=== PATIENT | male | born 1930 | race Caucasian/White ===

== ENCOUNTER 2018-05-03 07:13 | Day surgery (SDC) | payer MEDICARE, OTHER ==
[2018-05-03] MEDS ORDERED: Lactated Ringers 1,000 ML IV SCH (07:15)
[2018-05-03] MEDS ORDERED: Sodium Chloride 0.9% 10 ML Syringe FLUSH PRN (07:15)
[2018-05-03] MEDS ORDERED: Propofol 200 MG/20 ML SDV IV ONE (09:00)
[2018-05-03] MEDS ORDERED: Midazolam 1 MG/ML 2 ML SDV IV ONE (09:00)
[2018-05-03] MEDS ORDERED: Bupivacaine 0.5% 30 ML SDV INJECT ONE (09:15)
[2018-05-03] MEDS ORDERED: Lidocaine 1% with EPINEPHrine 1:100,000 20 ML MDV INJECT ONE (09:15)
--- NOTE | 2018-05-03 10:18 | PCM.OPNOTE ---
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 5 mm bahai lesion Primary Surgeon: Rafael Suarez Anesthesia Provider: Radha Hester Pathology: 4 mm right nasal lesion 5 mm bahai lesion Complications: None Condition: Good Free Text/Narrative:: see dictation
--- NOTE | 2018-05-03 12:27 | OR ---
DATE OF OPERATION: 05/03/2018 SURGEON: Rafael Suarez MD PROCEDURES PERFORMED: Excisional biopsy of right naris lesion and left temporal lesion. PREOPERATIVE DIAGNOSIS: Basal cell carcinoma. POSTOPERATIVE DIAGNOSIS: Basal cell carcinoma. INDICATIONS FOR PROCEDURE: This is an 87-year-old white male who recently underwent an excision of a lesion around his right naris. Pathology was positive for a basal cell carcinoma. He was recommended to come back for a re- excision. However, he waited until he developed a small ulceration in the area. In addition, he has another area in his left baptist that appears to be consistent with a basal cell carcinoma. He was offered and accepted excision of both of these areas with frozen section of the right naris lesion. INTRAOPERATIVE FINDINGS: The naris lesion measured approximately 4 mm, and the left baptist lesion was approximately 5 mm in diameter. DESCRIPTION OF PROCEDURE: After an excellent IV sedation was administered, the area in the nasal region was prepped and draped in the usual sterile manner. A 1:1 mixture of 1% lidocaine with epinephrine 0.5% bupivacaine was used to infiltrate the area and an elliptical incision was carried out with obvious margins. The superior margin was marked, and the specimen was passed off the field. Bleeding was controlled with [id number] 4-0 Vicryl. On frozen section, the margins were clear. There was a question of the tumor abutting up against the deep inferior margin. On the recommendation of the pathologist, the area was fulgurated with electrocautery. The wound was then closed with interrupted 4-0 Vicryl and then 4-0 Prolene was used to close the skin. Our attention was then turned to the lesion on the baptist. More local was infiltrated for a total of approximately 10 mL. An elliptical incision was carried out with grossly negative margins. The specimen was passed off the field with the superior margin marked. The wound was then closed with interrupted 4-0 Prolene. Dressing was applied. Needle, sponge, and instrument counts were reported as correct. The patient was taken to recovery in a good condition. /[id number] /MODL
[2018-05-03 14:33] VITALS: BP 146/77
--- NOTE | 2018-05-16 15:38 | OR ---
DATE OF OPERATION: 05/03/2018 SURGEON: Rafael Suarez MD ADDENDUM: PROCEDURE PERFORMED: Excisional biopsy of right naris and left temporal lesion. Please note that the narrowest margin on the naris lesion was approximately 2 mm surrounding the 4-mm skin lesion, and the temporal lesion had a margin of 4 mm surrounding the 5-mm lesion. /[id number] ÁNGEL/JEREMIE
== END 2018-05-03 11:33 | disposition home or self-care (01) ==
LOC: FB.SDS 07:13
PROVIDERS: ATTEND Surgery
DX: C44.311 Basal cell carcinoma of skin of nose (principal); C44.319 Basal cell carcinoma of skin of other parts of face; I25.10 Atherosclerotic heart disease of native coronary artery without angina pectoris; I12.9 Hypertensive chronic kidney disease with stage 1 through stage 4 chronic kidney disease, or unspecified chronic kidney disease; N18.2 Chronic kidney disease, stage 2 (mild); E78.5 Hyperlipidemia, unspecified; M17.12 Unilateral primary osteoarthritis, left knee; F17.210 Nicotine dependence, cigarettes, uncomplicated; Z79.899 Other long term (current) drug therapy
CPT/HCPCS: 00164; 11641; 88305; 88331; 88332; J2250; J2704; J3490; J7120

== ENCOUNTER 2018-06-04 09:43 | Emergency (ER) | payer MEDICARE, OTHER ==
--- NOTE | 2018-06-04 09:59 | EDM.PDOC ---
ED HPI GENERAL MEDICAL PROBLEM - General Chief Complaint: Cardiovascular Problem Stated Complaint: CHEST PAIN Time Seen by Provider: 06/04/18 09:54 Source of Information: Reports: Patient History Limitations: Reports: No Limitations - History of Present Illness INITIAL COMMENTS - FREE TEXT/NARRATIVE: Presents with substernal pleuritic chest pain since this morning. Has h/o CABD, porcine aortic valve replacement and pacemaker. Denies SOB, cough or N/V. Had left arm pain last week. Patient took ASA 162mg this morning, was given NTG SL x 1 en route, symptoms have improved. 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, Nitroglycerin Lower Chest Pain Score (Numeric/FACES): 4 - Related Data Allergies Allergy/AdvReac Type Severity Reaction Status Date / Time No Known Allergies Allergy Verified 05/03/18 08:02 Home Meds: Home Meds Allopurinol 200 mg PO DAILY@08 02/12/14 [History] Amiodarone [Cordarone] 200 mg PO DAILY 02/12/14 [History] Carvedilol 12.5 mg PO BIDMEALS 02/12/14 [History] Finasteride [Proscar] 5 mg PO DAILY 02/12/14 [History] Furosemide [Lasix] 80 mg PO BID@,02/12/14 [History] Pravastatin [Pravachol] 10 mg PO DAILY@02/12/14 [History] Aspirin [Low Dose Aspirin EC] 81 mg PO BEDTIME 05/01/14 [History] Acetaminophen with Codeine [Tylenol with Codeine #3 Tablet] 1 tab PO TID PRN 09/01 [History] Doxazosin Mesylate [Cardura] 8 mg PO BEDTIME 06/28/16 [History] Vitamin E 400 unit PO Q48H 06/28/16 [History] Warfarin [Coumadin] 5 mg PO SUTUTHSA 06/28/16 [History] Meclizine [Antivert] 12.5 mg PO DAILY 06/29/16 [History] Docusate Sodium [Colace] 100 mg PO DAILY 08/29/16 [History] Famotidine [Pepcid] 10 mg PO BID PRN 08/29/16 [History] Metolazone [Zaroxolyn] 2.5 mg PO DAILY 08/29/16 [History] Pantoprazole [ProTONIX] 40 mg PO DAILY 08/29/16 [History] Cilostazol [Pletal] 100 mg PO BID 05/02/18 [History] Gabapentin [Neurontin] 300 mg PO BEDTIME 05/02/18 [History] Methocarbamol [Robaxin] 1,000 mg PO TID PRN 05/02/18 [History] Potassium Chloride [Klor-Con M20] 20 meq PO Q4H 05/02/18 [History] Warfarin Sodium [Jantoven] 2.5 - 5 mg PO ASDIRECTED 05/02/18 [History] Acetaminophen with Codeine [Tylenol with Codeine #3 Tablet] 1 each PO Q4HR #8 tablet 05/03/18 [Rx] Past Medical History HEENT History: Reports: Cataract, Impaired Vision, Other (See Below) Other HEENT History: HX CATARACT REMOVAL SURGERY. HX MENIERE'S DISEASE Cardiovascular History: Reports: Afib, Automatic Implantable Cardioverter Defibrillators, Bypass, CAD, Cardiomyopathy, Heart Failure, Heart Valve Replacement, High Cholesterol, Hypertension, Pacemaker, Prior Cardiac Arrest, PVD Other Cardiovascular History: States he has had three heart attacks. Respiratory History: Reports: Pneumonia, Recurrent Gastrointestinal History: Reports: Diverticulosis, GERD, Other (See Below) Other Gastrointestinal History: Past stomach ulcer. Genitourinary History: Reports: Prostate Disorder, Renal Disease, Retention, Urinary Other Genitourinary History: ENLARGED PROSTATE WITH URINARY OBSTRUCTION. ELEVATED PSA, CHRONIC STAGE II KIDNEY DISEASE, URINARY FREQUENCY Musculoskeletal History: Reports: Arthritis, Gout, Osteoarthritis, Other (See Below) Other Musculoskeletal History: States he has arthritis in legs. CHONDROCALCINOSIS Neurological History: Reports: Vertigo Other Neuro History: MENIERE'S SYNDROME Psychiatric History: Reports: None Endocrine/Metabolic History: Reports: None Hematologic History: Reports: Anticoagulation Therapy Immunologic History: Reports: None Oncologic (Cancer) History: Reports: Colon Dermatologic History: Reports: Other (See Below) Other Dermatologic History: SKIN ULCER OF TOE OF RIGHT FOOT - Infectious Disease History Infectious Disease History: Reports: Chicken Pox, Measles, Mumps - Past Surgical History HEENT Surgical History: Reports: Cataract Surgery, Eye Surgery Cardiovascular Surgical History: Reports: Coronary Artery Bypass, Pacer, Valve Replacement Other Cardiovascular Surgeries/Procedures: CARDIOVERSIONS 3-4 IN ADDITIONS TO CARDIAC SURGERIES. PACEMAKER BATTERY REPLACEMENT. GI Surgical History: Reports: Appendectomy, Colon, Colonoscopy Male Surgical History: Reports: TURP-Transurethral Resection of Prostate, Vasectomy Musculoskeletal Surgical History: Reports: Joint Replacement, Knee Replacement Social & Family History - Caffeine Use Caffeine Use: Reports: Coffee - Living Situation & Occupation Living situation: Reports: Occupation: Retired ED ROS GENERAL - Review of Systems Review Of Systems: ROS reveals no pertinent complaints other than HPI. ED EXAM, GENERAL - Physical Exam Exam: See Below Exam Limited By: No Limitations General Appearance: Alert, WD/WN, No Apparent Distress Nose: Normal Inspection Throat/Mouth: No Airway Compromise Head: Atraumatic, Normocephalic Neck: Full Range of Motion Respiratory/Chest: No Respiratory Distress, Lungs Clear, Normal Breath Sounds, Chest Non-Tender Cardiovascular: Regular Rate, Rhythm, No Murmur GI/Abdominal: Normal Bowel Sounds, Soft, No Distention, Tender (epigastric) Extremities: Normal Inspection, Non-Tender, No Pedal Edema Neurological: Alert, Oriented, Normal Cognition, No Motor/Sensory Deficits Psychiatric: Normal Affect, Normal Mood Skin Exam: Warm, Dry, Intact EKG INTERPRETATION EKG Date: 06/04/18 Time: 08:50 Rhythm: Other (paced rhythm) Rate (Beats/Min): 75 Course - Vital Signs Last Recorded V/S: Last Vital Signs Temp 36.5 C 06/04/18 09:43 Pulse 71 06/04/18 12:00 Resp 16 06/04/18 12:30 BP 177/79 H 06/04/18 12:30 Pulse Ox 94 L 06/04/18 12:30 - Orders/Labs/Meds Orders: Active Orders 24 hr Category Date Time Status Abdomen Pelvis wo Cont [CT] Stat Exams 06/04/18 11:10 Taken CXR [Chest 1V Frontal] [CR] Stat Exams 06/04/18 09:51 Taken Labs: Laboratory Tests 06/04/18 06/04/18 06/04/18 Range/Units 10:05 10:05 10:05 WBC 9.8 (4.5-12.0) X10-3/uL RBC 4.81 (4.30-5.75) x10(6)uL Hgb 16.4 H D (11.5-15.5) g/dL Hct 48.5 D (30.0-51.3) % MCV 100.9 H (80-96) fL MCH 34.2 H (27.7-33.6) pg MCHC 33.9 (32.2-35.4) g/dL RDW 14.7 (11.5-15.5) % Plt Count 169 (125-369) X10(3)uL MPV 9.7 (7.4-10.4) fL Neut % (Auto) 74.0 (46-82) % Lymph % (Auto) 14.4 (13-37) % [place]oughton % (Auto) 9.2 (4-12) % Eos % (Auto) 2 (1.0-5.0) % Baso % (Auto) 1 (0-2) % Neut # (Auto) 7.2 (1.6-8.3) # Lymph # (Auto) 1.4 (0.6-5.0) # Houghton # (Auto) 0.9 (0.0-1.3) # Eos # (Auto) 0.2 (0.0-0.8) # Baso # (Auto) 0.1 (0.0-0.2) # PT 20.0 H (8.7-11.1) INR 2.07 H (0.89-1.13) D-Dimer, Quantitative 0.58 (0.0-0.59) mg/LFEU Sodium (135-145) mmol/L Potassium (3.5-5.3) mmol/L Chloride (100-110) mmol/L Carbon Dioxide (21-32) mmol/L BUN (7-18) mg/dL Creatinine (0.70-1.30) mg/dL Est Cr Clr Drug Dosing Estimated GFR (MDRD) (>60) BUN/Creatinine Ratio (9-20) Glucose (80-116) mg/dL Calcium (8.6-10.2) mg/dL Total Bilirubin (0.1-1.3) mg/dL AST (5-25) IU/L ALT (12-36) U/L Alkaline Phosphatase (56-112) IU/L Troponin I (<0.017-0.056) ng/mL Total Protein (6.0-8.0) g/dL Albumin (3.2-4.6) g/dL Globulin g/dL Albumin/Globulin Ratio Amylase (25-115) U/L Urine Color (YELLOW) Urine Appearance (CLEAR) Urine pH (5.0-6.5) Ur Specific Kinde (1.010-1.025) Urine Protein (NEGATIVE) mg/dL Urine Glucose (UA) (NEGATIVE) mg/dL Urine Ketones (NEGATIVE) mg/dL Urine Occult Blood (NEGATIVE) Urine Nitrite (NEGATIVE) Urine Bilirubin (NEGATIVE) Urine Urobilinogen (NEGATIVE) mg/dL Ur Leukocyte Esterase (NEGATIVE) Urine WBC (0) Ur Squamous Epith Cells (NS,R,O) Urine Bacteria (NS) 06/04/18 06/04/18 06/04/18 Range/Units 10:05 10:05 10:52 WBC (4.5-12.0) X10-3/uL RBC (4.30-5.75) x10(6)uL Hgb (11.5-15.5) g/dL Hct (30.0-51.3) % MCV (80-96) fL MCH (27.7-33.6) pg MCHC (32.2-35.4) g/dL RDW (11.5-15.5) % Plt Count (125-369) X10(3)uL MPV (7.4-10.4) fL Neut % (Auto) (46-82) % Lymph % (Auto) (13-37) % Houghton % (Auto) (4-12) % Eos % (Auto) (1.0-5.0) % Baso % (Auto) (0-2) % Neut # (Auto) (1.6-8.3) # Lymph # (Auto) (0.6-5.0) # Houghton # (Auto) (0.0-1.3) # Eos # (Auto) (0.0-0.8) # Baso # (Auto) (0.0-0.2) # PT (8.7-11.1) INR (0.89-1.13) D-Dimer, Quantitative (0.0-0.59) mg/LFEU Sodium 138 (135-145) mmol/L Potassium 3.5 (3.5-5.3) mmol/L Chloride 100 (100-110) mmol/L Carbon Dioxide 35 H (21-32) mmol/L BUN 29 H (7-18) mg/dL Creatinine 1.7 H (0.70-1.30) mg/dL Est Cr Clr Drug Dosing TNP Estimated GFR (MDRD) 38 L (>60) BUN/Creatinine Ratio 17.1 (9-20) Glucose 144 H (80-116) mg/dL Calcium 8.7 (8.6-10.2) mg/dL Total Bilirubin 0.9 (0.1-1.3) mg/dL AST 22 (5-25) IU/L ALT 29 (12-36) U/L Alkaline Phosphatase 60 (56-112) IU/L Troponin I < 0.017 L (<0.017-0.056) ng/mL Total Protein 6.8 (6.0-8.0) g/dL Albumin 3.4 (3.2-4.6) g/dL Globulin 3.4 g/dL Albumin/Globulin Ratio 1.0 Amylase 66 (25-115) U/L Urine Color Yellow (YELLOW) Urine Appearance Clear (CLEAR) Urine pH 7.0 H (5.0-6.5) Ur Specific Kinde 1.010 (1.010-1.025) Urine Protein Negative (NEGATIVE) mg/dL Urine Glucose (UA) Normal (NEGATIVE) mg/dL Urine Ketones Negative (NEGATIVE) mg/dL Urine Occult Blood Negative (NEGATIVE) Urine Nitrite Negative (NEGATIVE) Urine Bilirubin Negative (NEGATIVE) Urine Urobilinogen Normal (NEGATIVE) mg/dL Ur Leukocyte Esterase Negative (NEGATIVE) Urine WBC 0-5 (0) Ur Squamous Epith Cells Rare (NS,R,O) Urine Bacteria Occasional H (NS) 06/04/18 Range/Units 12:30 WBC (4.5-12.0) X10-3/uL RBC (4.30-5.75) x10(6)uL Hgb (11.5-15.5) g/dL Hct (30.0-51.3) % MCV (80-96) fL MCH (27.7-33.6) pg MCHC (32.2-35.4) g/dL RDW (11.5-15.5) % Plt Count (125-369) X10(3)uL MPV (7.4-10.4) fL Neut % (Auto) (46-82) % Lymph % (Auto) (13-37) % Houghton % (Auto) (4-12) % Eos % (Auto) (1.0-5.0) % Baso % (Auto) (0-2) % Neut # (Auto) (1.6-8.3) # Lymph # (Auto) (0.6-5.0) # Houghton # (Auto) (0.0-1.3) # Eos # (Auto) (0.0-0.8) # Baso # (Auto) (0.0-0.2) # PT (8.7-11.1) INR (0.89-1.13) D-Dimer, Quantitative (0.0-0.59) mg/LFEU Sodium (135-145) mmol/L Potassium (3.5-5.3) mmol/L Chloride (100-110) mmol/L Carbon Dioxide (21-32) mmol/L BUN (7-18) mg/dL Creatinine (0.70-1.30) mg/dL Est Cr Clr Drug Dosing Estimated GFR (MDRD) (>60) BUN/Creatinine Ratio (9-20) Glucose (80-116) mg/dL Calcium (8.6-10.2) mg/dL Total Bilirubin (0.1-1.3) mg/dL AST (5-25) IU/L ALT (12-36) U/L Alkaline Phosphatase (56-112) IU/L Troponin I < 0.017 L (<0.017-0.056) ng/mL Total Protein (6.0-8.0) g/dL Albumin (3.2-4.6) g/dL Globulin g/dL Albumin/Globulin Ratio Amylase (25-115) U/L Urine Color (YELLOW) Urine Appearance (CLEAR) Urine pH (5.0-6.5) Ur Specific Kinde (1.010-1.025) Urine Protein (NEGATIVE) mg/dL Urine Glucose (UA) (NEGATIVE) mg/dL Urine Ketones (NEGATIVE) mg/dL Urine Occult Blood (NEGATIVE) Urine Nitrite (NEGATIVE) Urine Bilirubin (NEGATIVE) Urine Urobilinogen (NEGATIVE) mg/dL Ur Leukocyte Esterase (NEGATIVE) Urine WBC (0) Ur Squamous Epith Cells (NS,R,O) Urine Bacteria (NS) Meds: Medications Discontinued Medications Generic Name Dose Route Start Last Admin Trade Name [place] PRN Reason Stop Dose Admin Pantoprazole Sodium 40 mg 06/04/18 10:00 06/04/18 10:10 Protonix Iv IVPUSH 06/04/18 10:01 40 mg ONETIME ONE Administration - Radiology Interpretation Free Text/Narrative:: CXR: NAD CT Abd/Pelvis w/o contrast: NAD - Re-Assessments/Exams Free Text/Narrative Re-Assessment/Exam: 06/04/18 12:13 Symptoms have resolved. 06/04/18 13:05 BP 151/94 Departure - Departure Time of Disposition: 13:04 Disposition: Home, Self-Care 01 Condition: Good Clinical Impression: Chest pain Qualifiers: Chest pain type: unspecified Qualified Code(s): R07.9 - Chest pain, unspecified HTN (hypertension) Qualifiers: Hypertension type: essential hypertension Qualified Code(s): I10 - Essential ( primary) hypertension Instructions: Nonspecific Chest Pain, Woll-sk-Azai, Hypertension, Zkhl-[id number] Referrals: Jai Ruth MD [Primary Care Provider] - Forms: ED Department Discharge Additional Instructions: Continue current medications. Follow up with your primary physician in 2-3 days. Return to the ER if symptoms worsen. - My Orders Last 24 Hours: My Active Orders 06/04/18 09:51 CXR [Chest 1V Frontal] [CR] Stat 06/04/18 11:10 Abdomen Pelvis wo Cont [CT] Stat - Assessment/Plan Last 24 Hours: My Active Orders 06/04/18 09:51 CXR [Chest 1V Frontal] [CR] Stat 06/04/18 11:10 Abdomen Pelvis wo Cont [CT] Stat
[2018-06-04] MEDS ORDERED: Pantoprazole 40 MG Vial IVPUSH ONE (10:00)
[2018-06-04 13:51] VITALS: BP 151/94
--- NOTE | 2018-06-04 13:52 | CT ---
INDICATION: Gassiness. Increased frequency of bowel movements. Chest pain. CT ABDOMEN AND PELVIS WITHOUT CONTRAST: TECHNIQUE: CT scan of abdomen and pelvis was done. Axial images with sagittal and reformatted images. FINDINGS: The lung bases look clear. No effusions. Cardiac silhouette is mildly enlarged. There is some dilatation of the left ventricle and left atrium. No overt CHF. There are pacing or defibrillator leads in the right atrium and right ventricle, as well as a left ventricular pacing lead. As seen on this non-enhanced study, there is either a tiny granuloma or some vascular calcification in the spleen. I see no concerning focal abnormality arising from the liver, spleen, pancreas, gallbladder, or adrenals. Right and left kidneys are atrophic. There is thinning of the cortex. There are bilateral renal cysts at the mid and lower aspects of the kidneys. A couple of these cysts appear to be hyperdense cysts. No definite solid masses. No stones on either kidney. No obstruction of either kidney. There is prominent atherosclerotic change in the abdominal aorta. The prominent atherosclerotic change extends into the celiac axis and its branches, as well as into the SMA. Prominent atherosclerotic change in the renal arteries bilaterally. Prominent atherosclerotic changes in the IWONA. Extensive atherosclerotic change extends into the iliac systems. No aneurysm. The wall of the bladder is somewhat thickened and somewhat irregular. This may be related to previous outflow obstruction or may be related to a disorder in bladder wall contraction. I do not see a definite focal mass or stone arising from the bladder. The patient either has a urachal remnant or a diverticulum that arises from the superior aspect of the bladder. There may be a small calcification within this structure. No definite mass otherwise. The prostate itself looks small. There may have been a previous TURP, however. No free air. No free fluid. No worrisome lymphadenopathy. There is diffuse degenerative change throughout the lumbar spine associated with the end plates and facet joints. There is some generalized spinal canal stenosis throughout the lumbar spine. Additional degenerative changes affect the hip joints and SI joints. I do not see a worrisome lytic or blastic bone lesion. There is some stool throughout the colon. There are diverticula that arise, especially from the rectosigmoid colon. No definite diverticulitis. No large or small bowel obstruction. No definite mass arises from either the large or small bowel. On the reformatted images, there are some chronic appearing compression deformities in the lower thoracic and upper lumbar region. IMPRESSION: No definite acute abnormality is shown. There is some stool throughout the colon. No large or small bowel obstruction. 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 No diverticulitis. Atrophic appearing kidneys. There are bilateral renal cysts that are identified , several of which are hyperdense cysts. No definite solid masses or obstruction. Extensive underlying atherosclerotic changes, as outlined above. Chronic appearing compression deformities in the thoracic and lumbar spine. Diffuse degenerative changes throughout the visualized lumbar spine and pelvis. The patient has almost certain central spinal canal stenosis in the mid and lower lumbar spine, especially at the L4-5 level. There may be a patent urachus arising from the superior aspect of the bladder. Otherwise, the patient has an underlying diverticulum. I do not see a concerning mass within the bladder otherwise. Extensive previous cardia interventions. No definite CHF. MTDD
--- NOTE | 2018-06-04 14:39 | CR ---
INDICATION: Chest pain. CHEST, AP PORTABLE IMAGES: FINDINGS: There is an earlier x-ray from 06/27/2016. As before, there has been a previous midline sternotomy. There is a left subclavian transvenous pacer with defibrillator leads. The cardiac silhouette is enlarged. There is dilatation of the left ventricle in particular. No definite CHF. The lungs look clear of acute infiltrate or effusion. IMPRESSION: No acute abnormality in the chest. Specifically, no CHF or pneumonia. MTDD
== END 2018-06-04 13:20 | disposition home or self-care (01) ==
LOC: FB.ED 09:43
DX: R07.2 Precordial pain (principal); I11.0 Hypertensive heart disease with heart failure; I50.9 Heart failure, unspecified; I48.91 Unspecified atrial fibrillation; E78.00 Pure hypercholesterolemia, unspecified; I25.810 Atherosclerosis of coronary artery bypass graft(s) without angina pectoris; Z95.1 Presence of aortocoronary bypass graft; Z79.899 Other long term (current) drug therapy; Z79.82 Long term (current) use of aspirin; Z79.01 Long term (current) use of anticoagulants
CPT/HCPCS: 36415; 71045; 74176; 80053; 81001; 82150; 84484; 85025; 85379; 85610; 96374; 99285; C9113

== ENCOUNTER 2018-06-07 04:41 | Emergency (ER) | payer MEDICARE, OTHER ==
[2018-06-07] MEDS ORDERED: Sodium Chloride 0.9% 10 ML Syringe FLUSH PRN (05:10)
--- NOTE | 2018-06-07 05:17 | EDM.PDOC ---
ED HPI GENERAL MEDICAL PROBLEM - General Chief Complaint: Gastrointestinal Problem Stated Complaint: BLEEDING Time Seen by Provider: 06/07/18 05:12 Source of Information: Reports: Patient, Family History Limitations: Reports: No Limitations - History of Present Illness INITIAL COMMENTS - FREE TEXT/NARRATIVE: Presents with 3 episodes of rectal bleeding since 12 midnight, described as dark red blood mixed with stool. Diagnosed with diverticulitis by Dr. Ruth yesterday, prescribed antibiotics, has not yet started. 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 Onset: Today Onset Date: 06/07/18 Onset Time: 00:00 Duration: Hour(s): (5) Severity: Moderate - Related Data Allergies Allergy/AdvReac Type Severity Reaction Status Date / Time No Known Allergies Allergy Verified 06/07/18 05:29 Home Meds: Home Meds Allopurinol 200 mg PO DAILY@08 02/12/14 [History] Amiodarone [Cordarone] 200 mg PO DAILY 02/12/14 [History] Carvedilol 12.5 mg PO BIDMEALS 02/12/14 [History] Finasteride [Proscar] 5 mg PO DAILY 02/12/14 [History] Furosemide [Lasix] 80 mg PO BID@,02/12/14 [History] Pravastatin [Pravachol] 10 mg PO DAILY@02/12/14 [History] Aspirin [Low Dose Aspirin EC] 81 mg PO BEDTIME 05/01/14 [History] Acetaminophen with Codeine [Tylenol with Codeine #3 Tablet] 1 tab PO TID PRN 09/01 [History] Doxazosin Mesylate [Cardura] 8 mg PO BEDTIME 06/28/16 [History] Vitamin E 400 unit PO Q48H 06/28/16 [History] Warfarin [Coumadin] 5 mg PO SUTUTHSA 06/28/16 [History] Meclizine [Antivert] 12.5 mg PO DAILY 06/29/16 [History] Docusate Sodium [Colace] 100 mg PO DAILY 08/29/16 [History] Famotidine [Pepcid] 10 mg PO BID PRN 08/29/16 [History] Metolazone [Zaroxolyn] 2.5 mg PO DAILY 08/29/16 [History] Pantoprazole [ProTONIX] 40 mg PO DAILY 08/29/16 [History] Cilostazol [Pletal] 100 mg PO BID 05/02/18 [History] Gabapentin [Neurontin] 300 mg PO BEDTIME 05/02/18 [History] Methocarbamol [Robaxin] 1,000 mg PO TID PRN 05/02/18 [History] Potassium Chloride [Klor-Con M20] 20 meq PO 6XDAY 05/02/18 [History] Warfarin Sodium [Jantoven] 2.5 - 5 mg PO ASDIRECTED 05/02/18 [History] Past Medical History HEENT History: Reports: Cataract, Impaired Vision, Other (See Below) Other HEENT History: HX CATARACT REMOVAL SURGERY. HX MENIERE'S DISEASE Cardiovascular History: Reports: Afib, Automatic Implantable Cardioverter Defibrillators, Bypass, CAD, Cardiomyopathy, Heart Failure, Heart Valve Replacement, High Cholesterol, Hypertension, Pacemaker, Prior Cardiac Arrest, PVD Other Cardiovascular History: States he has had three heart attacks. Respiratory History: Reports: Pneumonia, Recurrent Gastrointestinal History: Reports: Diverticulosis, GERD, Other (See Below) Other Gastrointestinal History: Past stomach ulcer. Genitourinary History: Reports: Prostate Disorder, Renal Disease, Retention, Urinary Other Genitourinary History: ENLARGED PROSTATE WITH URINARY OBSTRUCTION. ELEVATED PSA, CHRONIC STAGE II KIDNEY DISEASE, URINARY FREQUENCY Musculoskeletal History: Reports: Arthritis, Gout, Osteoarthritis, Other (See Below) Other Musculoskeletal History: States he has arthritis in legs. CHONDROCALCINOSIS Neurological History: Reports: Vertigo Other Neuro History: MENIERE'S SYNDROME Psychiatric History: Reports: None Endocrine/Metabolic History: Reports: None Hematologic History: Reports: Anticoagulation Therapy Immunologic History: Reports: None Oncologic (Cancer) History: Reports: Colon Dermatologic History: Reports: Other (See Below) Other Dermatologic History: SKIN ULCER OF TOE OF RIGHT FOOT - Infectious Disease History Infectious Disease History: Reports: Chicken Pox, Measles, Mumps - Past Surgical History HEENT Surgical History: Reports: Cataract Surgery, Eye Surgery Cardiovascular Surgical History: Reports: Coronary Artery Bypass, Pacer, Valve Replacement Other Cardiovascular Surgeries/Procedures: CARDIOVERSIONS 3-4 IN ADDITIONS TO CARDIAC SURGERIES. PACEMAKER BATTERY REPLACEMENT. GI Surgical History: Reports: Appendectomy, Colon, Colonoscopy Male Surgical History: Reports: TURP-Transurethral Resection of Prostate, Vasectomy Musculoskeletal Surgical History: Reports: Joint Replacement, Knee Replacement Social & Family History - Family History Family Medical History: Noncontributory - Tobacco Use Smoking Status *Q: Current Every Day Smoker Tobacco Use Within Last Twelve Months: Cigars - Caffeine Use Caffeine Use: Reports: Coffee - Alcohol Use Alcohol Use History: Yes Alcohol Use Frequency: Daily - Living Situation & Occupation Living situation: Reports: Occupation: Retired ED ROS GENERAL - Review of Systems Review Of Systems: See Below Constitutional: Reports: No Symptoms HEENT: Reports: No Symptoms Respiratory: Reports: No Symptoms Cardiovascular: Reports: No Symptoms Endocrine: Reports: No Symptoms GI/Abdominal: Reports: Abdominal Pain (LLQ x 2 days) : Reports: No Symptoms Musculoskeletal: Reports: No Symptoms Skin: Reports: No Symptoms Neurological: Reports: No Symptoms Psychiatric: Reports: No Symptoms Hematologic/Lymphatic: Reports: No Symptoms Immunologic: Reports: No Symptoms ED EXAM, GI/ABD - Physical Exam Exam: See Below Exam Limited By: No Limitations General Appearance: Alert, WD/WN, No Apparent Distress Ears: Normal External Exam Nose: Normal Inspection Throat/Mouth: No Airway Compromise Head: Atraumatic, Normocephalic Neck: Normal Inspection Respiratory/Chest: No Respiratory Distress, Lungs Clear, Normal Breath Sounds Cardiovascular: Regular Rate, Rhythm GI/Abdominal Exam: Normal Bowel Sounds, Soft, No Distention, Tender (LLQ) Rectal (Males) Exam: Other (patient produced @100 cc meron red blood per rectum) Back Exam: Full Range of Motion Extremities: Normal Range of Motion Neurological: Alert, No Motor/Sensory Deficits Psychiatric: Normal Affect, Normal Mood Skin Exam: Warm, Dry, Intact Course - Vital Signs Last Recorded V/S: Last Vital Signs Temp 36.6 C 06/07/18 04:45 Pulse 71 06/07/18 04:45 Resp 16 06/07/18 04:45 BP 129/66 06/07/18 04:45 Pulse Ox 97 06/07/18 04:45 - Orders/Labs/Meds Orders: Active Orders 24 hr Category Date Time Status TYPE AND SCREEN [BBK] Stat Lab 06/07/18 05:30 Received Phytonadione [AquaMephyton] 5 mg Med 06/07/18 05:53 Active Sodium Chloride 0.9% [Normal Saline] 50 ml IV NOW Sodium Chloride 0.9% [Normal Saline] 1,000 ml Med 06/07/18 05:30 Active IV ASDIRECTED Sodium Chloride 0.9% [Saline Flush] Med 06/07/18 05:10 Active 10 ml FLUSH ASDIRECTED PRN Saline Lock Insert [OM.PC] Routine Oth 06/07/18 05:10 Ordered Medication Orders Sodium Chloride (Normal Saline) 1,000 mls @ 100 mls/hr IV ASDIRECTED HAZEL Last Admin: 06/07/18 05:55 Dose: 100 mls/hr Phytonadione 5 mg/ Sodium (Chloride) 50.5 mls @ 100 mls/hr IV NOW ONE Stop: 06/07/18 06:23 Last Admin: 06/07/18 06:01 Dose: 100 mls/hr Sodium Chloride (Saline Flush) 10 ml FLUSH ASDIRECTED PRN PRN Reason: Keep Vein Open Labs: Laboratory Tests 06/07/18 06/07/18 06/07/18 Range/Units 05:30 05:30 05:30 WBC 12.9 H (4.5-12.0) X10-3/uL RBC 4.65 (4.30-5.75) x10(6)uL Hgb 16.1 H (11.5-15.5) g/dL Hct 47.0 (30.0-51.3) % MCV 101.0 H (80-96) fL MCH 34.7 H (27.7-33.6) pg MCHC 34.3 (32.2-35.4) g/dL RDW 15.3 (11.5-15.5) % Plt Count 170 (125-369) X10(3)uL MPV 10.2 (7.4-10.4) fL Add Manual Diff Yes Neutrophils % (Manual) 78 (46-82) % Band Neutrophils % 4 (0-6) % Lymphocytes % (Manual) 13 (13-37) % Monocytes % (Manual) 5 (4-12) % PT 21.9 H (8.7-11.1) INR 2.28 H (0.89-1.13) Sodium 140 (135-145) mmol/L Potassium 3.2 L (3.5-5.3) mmol/L Chloride 100 (100-110) mmol/L Carbon Dioxide 33 H (21-32) mmol/L BUN 37 H (7-18) mg/dL Creatinine 1.6 H (0.70-1.30) mg/dL Est Cr Clr Drug Dosing 32.60 mL/min Estimated GFR (MDRD) 41 L (>60) BUN/Creatinine Ratio 23.1 H (9-20) Glucose 172 H (80-116) mg/dL Calcium 8.3 L (8.6-10.2) mg/dL Total Bilirubin 0.8 (0.1-1.3) mg/dL AST 23 (5-25) IU/L ALT 30 (12-36) U/L Alkaline Phosphatase 67 (56-112) IU/L Total Protein 6.7 (6.0-8.0) g/dL Albumin 3.3 (3.2-4.6) g/dL Globulin 3.4 g/dL Albumin/Globulin Ratio 1.0 Meds: Medications Generic Name Dose Route Start Last Admin Trade Name Freq PRN Reason Stop Dose Admin Sodium Chloride 1,000 mls @ 100 mls/hr 06/07/18 05:30 06/07/18 05:55 Normal Saline IV 100 mls/hr ASDIRECTED HAZEL Administration Phytonadione 5 mg/ Sodium 50.5 mls @ 100 mls/hr 06/07/18 05:53 06/07/18 06:01 Chloride IV 06/07/18 06:23 100 mls/hr NOW ONE Administration Sodium Chloride 10 ml 06/07/18 05:10 Saline Flush FLUSH ASDIRECTED PRN Keep Vein Open - Re-Assessments/Exams Free Text/Narrative Re-Assessment/Exam: 06/07/18 05:45 Dr. Suarez consulted, recommended OC transfer to [place]. 06/07/18 06:14 Dr. Cortez accepts patient for transfer to [facility]. Departure - Departure Time of Disposition: 06:15 Disposition: DC/Tfer to Acute Hospital 02 Condition: Serious Clinical Impression: Lower GI bleed - Discharge Information *PRESCRIPTION DRUG MONITORING PROGRAM REVIEWED*: No *COPY OF PRESCRIPTION DRUG MONITORING REPORT IN PATIENT PER: Not Applicable Referrals: Jai Ruth MD [Primary Care Provider] - Forms: ED Department Discharge - My Orders Last 24 Hours: My Active Orders 06/07/18 05:10 Sodium Chloride 0.9% [Saline Flush] 10 ml FLUSH ASDIRECTED PRN Saline Lock Insert [OM.PC] Routine 06/07/18 05:30 TYPE AND SCREEN [BBK] Stat Sodium Chloride 0.9% [Normal Saline] 1,000 ml IV ASDIRECTED 06/07/18 05:53 Phytonadione [AquaMephyton] 5 mg Sodium Chloride 0.9% [Normal Saline] 50 ml IV NOW - Assessment/Plan Last 24 Hours: My Active Orders 06/07/18 05:10 Sodium Chloride 0.9% [Saline Flush] 10 ml FLUSH ASDIRECTED PRN Saline Lock Insert [OM.PC] Routine 06/07/18 05:30 TYPE AND SCREEN [BBK] Stat Sodium Chloride 0.9% [Normal Saline] 1,000 ml IV ASDIRECTED 06/07/18 05:53 Phytonadione [AquaMephyton] 5 mg Sodium Chloride 0.9% [Normal Saline] 50 ml IV NOW
[2018-06-07] MEDS ORDERED: Sodium Chloride 0.9% 1,000 ML IV SCH (05:30)
[2018-06-07] MEDS ORDERED: Phytonadione 5 MG in Sodium Chloride 0.9% 50 ML IV ONE (05:53)
[2018-06-07 06:29] VITALS: BP 132/65
== END 2018-06-07 06:55 ==
LOC: FB.ED 04:41
DX: K92.2 Gastrointestinal hemorrhage, unspecified (principal); I11.0 Hypertensive heart disease with heart failure; I50.9 Heart failure, unspecified; F17.210 Nicotine dependence, cigarettes, uncomplicated; Z79.899 Other long term (current) drug therapy
CPT/HCPCS: 36415; 80053; 85025; 85610; 86850; 86900; 86901; 96365; 99284; J3430; J7030; J7050; 99285

== ENCOUNTER 2020-01-18 10:50 | Emergency (ER) | payer MEDICARE, OTHER ==
[2020-01-18 11:21] VITALS: BP 145/72; PULSE 71
--- NOTE | 2020-01-18 11:37 | EDM.PDOC ---
ED HPI GENERAL MEDICAL PROBLEM - General Chief Complaint: Gastrointestinal Problem Stated Complaint: VOMITING,BP HIGH Time Seen by Provider: 01/18/20 11:30 Source of Information: Reports: Patient History Limitations: Reports: No Limitations - History of Present Illness INITIAL COMMENTS - FREE TEXT/NARRATIVE: 89-year-old male who presents to the emergency department with complaints of not feeling well yesterday and having some bloating and abdominal discomfort yesterday as well as inability to urinate and to have a bowel movement. He was rating the symptoms as moderate yesterday. He did not have any chest pain or shortness of breath but had generalized malaise. He was able to begin urinate last evening and had 1000 mL out since last night and he was able to have a bowel movement that was initially loose and appeared to be somewhat dark brown and now has become more firm and brown. This morning he has also been coughing up phlegm which she does frequently but it is usually clear and white and today it was black. He did have vomiting 1 last night according to the it was "black and had red in it". He has had no weakness or dizziness. He has had no nausea and no more vomiting since last night. He ate this morning without any problems. He tells me he feels well and back to himself today. He denies any pain. He rates his pain as a 0/10. He has been ambulating well. He is chronically anticoagulated with Coumadin and his last INR was 2 weeks ago and was 2.7. There are no other associated signs or symptoms. There are no other modifying factors. Onset: Other (Yesterday) Duration: Improving Location: Reports: Abdomen Quality: Reports: Other (Bloating) Severity: Moderate (It is not present now but was moderate yesterday) Improves with: Reports: None Worsens with: Reports: None Context: Reports: Other Associated Symptoms: Reports: No Other Symptoms (Except as above) Treatments SCALLOP RAKER: Reports: Other Medication(s) (Maalox earlier) - Related Data Allergies Allergy/AdvReac Type Severity Reaction Status Date / Time No Known Allergies Allergy Verified 01/18/20 11:12 Home Meds: Home Meds Amiodarone [Cordarone] 200 mg PO DAILY 02/12/14 [History] Finasteride [Proscar] 5 mg PO DAILY 02/12/14 [History] Furosemide [Lasix] 80 mg PO BID@,02/12/14 [History] Pravastatin [Pravachol] 10 mg PO DAILY 02/12/14 [History] allopurinoL [Allopurinol] 200 mg PO DAILY 02/12/14 [History] carvediloL [Carvedilol] 12.5 mg PO BIDMEALS 02/12/14 [History] Aspirin [Low Dose Aspirin EC] 81 mg PO BEDTIME 05/01/14 [History] Acetaminophen with Codeine [Tylenol with Codeine #3 Tablet] 1 tab PO TID PRN 09/01 [History] Doxazosin Mesylate [Cardura] 8 mg PO BEDTIME 06/28/16 [History] Vitamin E 400 unit PO Q48H 06/28/16 [History] Meclizine [Antivert] 12.5 mg PO DAILY 06/29/16 [History] Docusate Sodium [Colace] 100 mg PO DAILY 08/29/16 [History] Famotidine [Pepcid] 10 mg PO BID PRN 08/29/16 [History] Metolazone [Zaroxolyn] 2.5 mg PO DAILY 08/29/16 [History] Pantoprazole [ProTONIX] 40 mg PO DAILY 08/29/16 [History] Gabapentin [Neurontin] 300 mg PO BEDTIME 05/02/18 [History] Methocarbamol [Robaxin] 1,000 mg PO TID PRN 05/02/18 [History] Potassium Chloride [Klor-Con M20] 20 meq PO 6XDAY 05/02/18 [History] Warfarin Sodium [Jantoven] 2.5 - 5 mg PO ASDIRECTED 05/02/18 [History] cilostazoL [Pletal] 100 mg PO BID 05/02/18 [History] Bumetanide 1 mg PO DAILY 06/07/18 [History] Ibuprofen 400 mg PO ASDIRECTED PRN 06/07/18 [History] Past Medical History HEENT History: Reports: Cataract, Impaired Vision, Other (See Below) Other HEENT History: HX CATARACT REMOVAL SURGERY. HX MENIERE'S DISEASE Cardiovascular History: Reports: Afib, Automatic Implantable Cardioverter Defibrillators, Bypass, CAD, Cardiomyopathy, Heart Failure, Heart Valve Replacement, High Cholesterol, Hypertension, Pacemaker, Prior Cardiac Arrest, PVD Other Cardiovascular History: States he has had three heart attacks. Respiratory History: Reports: Pneumonia, Recurrent Gastrointestinal History: Reports: Diverticulosis, GERD, Other (See Below) Other Gastrointestinal History: Past stomach ulcer. Genitourinary History: Reports: Prostate Disorder, Renal Disease, Retention, Urinary Other Genitourinary History: ENLARGED PROSTATE WITH URINARY OBSTRUCTION. ELEVATED PSA, CHRONIC STAGE II KIDNEY DISEASE, URINARY FREQUENCY Musculoskeletal History: Reports: Arthritis, Gout, Osteoarthritis, Other (See Below) Other Musculoskeletal History: States he has arthritis in legs. CHONDROCALCINOSIS Neurological History: Reports: Vertigo Other Neuro History: MENIERE'S SYNDROME Psychiatric History: Reports: Anxiety Hematologic History: Reports: Anticoagulation Therapy Oncologic (Cancer) History: Reports: Colon Dermatologic History: Reports: Other (See Below) Other Dermatologic History: SKIN ULCER OF TOE OF RIGHT FOOT - Infectious Disease History Infectious Disease History: Reports: Chicken Pox, Measles, Mumps - Past Surgical History HEENT Surgical History: Reports: Cataract Surgery, Eye Surgery Cardiovascular Surgical History: Reports: Coronary Artery Bypass, Pacer, Valve Replacement Other Cardiovascular Surgeries/Procedures: CARDIOVERSIONS 3-4 IN ADDITIONS TO CARDIAC SURGERIES. PACEMAKER BATTERY REPLACEMENT. GI Surgical History: Reports: Appendectomy, Colon, Colonoscopy, EGD, Polypectomy Male Surgical History: Reports: TURP-Transurethral Resection of Prostate, Vasectomy Musculoskeletal Surgical History: Reports: Joint Replacement, Knee Replacement Social & Family History - Tobacco Use Smoking Status *Q: Current Every Day Smoker Years of Tobacco use: 64 Packs/Tins Daily: 1 - Caffeine Use Caffeine Use: Reports: Coffee - Alcohol Use Alcohol Use History: Yes Alcohol Use in Last Twelve Months: Yes Alcohol Use Frequency: Daily (He drinks one whiskey a day.) - Recreational Drug Use Recreational Drug Use: No - Living Situation & Occupation Living situation: Reports: Occupation: Retired ED ROS GENERAL - Review of Systems Review Of Systems: See Below Constitutional: Reports: Malaise (Yesterday but feels normal/well today.) HEENT: Reports: No Symptoms Respiratory: Reports: Sputum (Chronically has white sputum but since last night and this morning and has been "black".) Cardiovascular: Reports: No Symptoms GI/Abdominal: Reports: Abdominal Pain, Constipation (Yesterday but has resolved over the evening.), Vomiting (Times one yesterday. None today and no nausea today.), Other (Reported dark stool last night) : Reports: Urinary Retention (Yesterday but has urinated well since last night and today and has no dysuria or hematuria. His bladder scan did show 260 mL post void today.) Musculoskeletal: Reports: No Symptoms Skin: Reports: No Symptoms Neurological: Reports: No Symptoms Hematologic/Lymphatic: Reports: Easy Bleeding, Easy Bruising, Other ( Chronically anticoagulated on Coumadin.) Immunologic: Reports: No Symptoms ED EXAM, GENERAL - Physical Exam Exam: See Below Exam Limited By: No Limitations General Appearance: Alert, WD/WN, No Apparent Distress Eye Exam: Bilateral Eye: EOMI, Normal Inspection, PERRL Ears: Normal External Exam, Hearing Grossly Normal Ear Exam: Bilateral Ear: Auricle Normal Nose: Normal Inspection, Normal Mucosa, No Blood Throat/Mouth: Normal Inspection, Normal Oropharynx, Normal Voice, No Airway Compromise Head: Atraumatic, Normocephalic Neck: Normal Inspection, Supple, Non-Tender, Full Range of Motion Respiratory/Chest: No Respiratory Distress, Lungs Clear, Normal Breath Sounds, No Accessory Muscle Use, Chest Non-Tender Cardiovascular: Normal Peripheral Pulses, Regular Rate, Rhythm, No JVD Peripheral Pulses: 2+: Radial (L), Radial (R), Dorsalis Pedis (L), Dorsalis Pedis (R) GI/Abdominal: Normal Bowel Sounds, Soft, Non-Tender, No Organomegaly, No Mass Rectal (Males) Exam: Normal Exam, Normal Rectal Tone, Heme + Stool (Stool was normal in color (brown) but was Hemoccult positive.) Extremities: Normal Inspection, Normal Range of Motion, Non-Tender, No Pedal Edema, Normal Capillary Refill Neurological: Alert, Oriented, CN II-XII Intact, Normal Cognition, No Motor/ Sensory Deficits Skin Exam: Warm, Dry, Intact, Normal Color, No Rash EKG INTERPRETATION EKG Date: 01/18/20 Time: 12:03 Rhythm: A-Fib (A. fib/A flutter with ventricular paced rhythm) Comparison: No Change (No change in EKG on 06/27/2016.) Course - Vital Signs Last Recorded V/S: Last Vital Signs Temp 36.5 C 01/18/20 11:00 Pulse 71 01/18/20 11:00 Resp 18 01/18/20 11:00 BP 145/72 H 01/18/20 11:00 Pulse Ox 99 01/18/20 11:00 Orthostatic Blood Pressure [ 110/55 Standing] Orthostatic Blood Pressure [ 135/72 Sitting] Orthostatic Blood Pressure [ 149/68 Supine] - Orders/Labs/Meds Orders: Active Orders 24 hr Category Date Time Status Bladder Scan [RC] ASDIRECTED Care 01/18/20 11:54 Active EKG Documentation Completion [RC] ASDIRECTED Care 01/18/20 11:56 Active Orthostatic Vital Signs [RC] ASDIRECTED Care 01/18/20 11:54 Active Chest 2V [CR] Stat Exams 01/18/20 11:54 Taken OCCULT BLOOD SCREEN [OP] Stat Lab 01/18/20 11:54 Results EKG 12 Lead [EK] Routine Ther 01/18/20 11:56 Ordered Labs: Laboratory Tests 01/18/20 01/18/20 01/18/20 Range/Units 11:54 12:10 12:10 WBC 14.8 H (4.5-12.0) X10-3/uL RBC 4.73 (4.30-5.75) x10(6)uL Hgb 16.7 (13.5-17.8) g/dL Hct 49.0 (30.0-51.3) % MCV 103.5 H (80-96) fL MCH 35.4 H (27.7-33.6) pg MCHC 34.2 (32.2-35.4) g/dL RDW 14.6 (11.5-15.5) % Plt Count 169 (125-369) X10(3)uL MPV 9.5 (7.4-10.4) fL Add Manual Diff Yes Neutrophils % (Manual) 79 (46-82) % Lymphocytes % (Manual) 12 L (13-37) % Monocytes % (Manual) 9 (4-12) % Macrocytosis Few PT 21.5 H (9.0-11.1) sec INR 2.09 H (1.00-1.24) Sodium (135-145) mmol/L Potassium (3.5-5.3) mmol/L Chloride (100-110) mmol/L Carbon Dioxide (21-32) mmol/L BUN (7-18) mg/dL Creatinine (0.70-1.30) mg/dL Est Cr Clr Drug Dosing mL/min Estimated GFR (MDRD) (>60) BUN/Creatinine Ratio (9-20) Glucose (80-116) mg/dL Calcium (8.6-10.2) mg/dL Total Bilirubin (0.1-1.3) mg/dL AST (5-25) IU/L ALT (12-36) U/L Alkaline Phosphatase (56-112) IU/L Troponin I (4.0-60.3) pg/mL Total Protein (6.0-8.0) g/dL Albumin (3.2-4.6) g/dL Globulin g/dL Albumin/Globulin Ratio Urine Color Yellow (YELLOW) Urine Appearance Clear (CLEAR) Urine pH 6.0 (5.0-6.5) Ur Specific [place] 1.005 L (1.010-1.025) Urine Protein Negative (NEGATIVE) mg/dL Urine Glucose (UA) Normal (NORMAL) mg/dL Urine Ketones Negative (NEGATIVE) mg/dL Urine Occult Blood Negative (NEGATIVE) Urine Nitrite Negative (NEGATIVE) Urine Bilirubin Negative (NEGATIVE) Urine Urobilinogen Normal (NEGATIVE) mg/dL Ur Leukocyte Esterase Negative (NEGATIVE) Urine WBC 0-5 (0-5) Ur Squamous Epith Cells Occasional (NS,R,O) Urine Bacteria Few H (NS) 01/18/20 01/18/20 Range/Units 12:10 12:10 WBC (4.5-12.0) X10-3/uL RBC (4.30-5.75) x10(6)uL Hgb (13.5-17.8) g/dL Hct (30.0-51.3) % MCV (80-96) fL MCH (27.7-33.6) pg MCHC (32.2-35.4) g/dL RDW (11.5-15.5) % Plt Count (125-369) X10(3)uL MPV (7.4-10.4) fL Add Manual Diff Neutrophils % (Manual) (46-82) % Lymphocytes % (Manual) (13-37) % Monocytes % (Manual) (4-12) % Macrocytosis PT (9.0-11.1) sec INR (1.00-1.24) Sodium 138 (135-145) mmol/L Potassium 4.3 D (3.5-5.3) mmol/L Chloride 98 L (100-110) mmol/L Carbon Dioxide 33 H (21-32) mmol/L BUN 64 H D (7-18) mg/dL Creatinine 2.1 H* (0.70-1.30) mg/dL Est Cr Clr Drug Dosing 22.73 mL/min Estimated GFR (MDRD) 30 L (>60) BUN/Creatinine Ratio 30.5 H (9-20) Glucose 184 H (80-116) mg/dL Calcium 9.4 (8.6-10.2) mg/dL Total Bilirubin 0.8 (0.1-1.3) mg/dL AST 18 D (5-25) IU/L ALT 23 D (12-36) U/L Alkaline Phosphatase 60 (56-112) IU/L Troponin I 25.0 (4.0-60.3) pg/mL Total Protein 7.0 (6.0-8.0) g/dL Albumin 3.3 (3.2-4.6) g/dL Globulin 3.7 g/dL Albumin/Globulin Ratio 0.9 Urine Color (YELLOW) Urine Appearance (CLEAR) Urine pH (5.0-6.5) Ur Specific [place] (1.010-1.025) Urine Protein (NEGATIVE) mg/dL Urine Glucose (UA) (NORMAL) mg/dL Urine Ketones (NEGATIVE) mg/dL Urine Occult Blood (NEGATIVE) Urine Nitrite (NEGATIVE) Urine Bilirubin (NEGATIVE) Urine Urobilinogen (NEGATIVE) mg/dL Ur Leukocyte Esterase (NEGATIVE) Urine WBC (0-5) Ur Squamous Epith Cells (NS,R,O) Urine Bacteria (NS) - Radiology Interpretation Free Text/Narrative:: Chest x-ray showed no acute disease. - Re-Assessments/Exams Free Text/Narrative Re-Assessment/Exam: 01/18/20 13:15: The patient has remained vitally stable. He still tells well. His orthostatic vital signs did show a slight decrease in his blood pressure but there was no dizziness and his pulse remained the same. His stool Hemoccult is positive but his hemoglobin was normal. I did call and discuss the patient's case with Dr. Bose and at this point with normal vital signs and a normal hemoglobin, he and I feel that the patient could be discharged with careful monitoring at home and with follow-up through the clinic with a recheck of his hemoglobin in the next 1 to 2 days. I discussed this with the patient and with his and they both feel comfortable with this plan for discharge. Precautions and reasons for return to the emergency department were discussed with the patient and his while they were in the emergency department and were detailed in the patient's discharge instructions. Departure - Departure Time of Disposition: 13:30 Disposition: Home, Self-Care 01 Condition: Good (Stable) Clinical Impression: Heme positive stool, Resolved abdominal pain - Discharge Information Instructions: Abdominal Pain, Adult, [id number] Referrals: Jai Ruth MD [Primary Care Provider] - Forms: ED Department Discharge Additional Instructions: Your blood counts were normal. Her kidney function is slightly worse than it has been in the past. This could be due to your kidney function getting worse or due to some dehydration. You did have evidence of blood in your stool. Your chest x-ray was normal and your EKG was unchanged from previous. Your INR was 2.1. You should rest. You should continue your medications as previously directed by your doctor. Follow-up with the [facility] in the next 1-2 days for recheck and also to recheck your hemoglobin. Back to the emergency department for recurrent abdominal discomfort, blood in your bowel movements or black stools, weakness or dizziness, fever, continued vomiting or any other concerning sign or symptom. Sepsis Event Note - Evaluation Sepsis Screening Result: No Definite Risk - Focused Exam Vital Signs: Vital Signs Temp Pulse Resp BP Pulse Ox 01/18/20 11:00 36.5 C 71 18 145/72 H 99 Date Exam was Performed: 01/18/20 Time Exam was Performed: 13:35 - My Orders Last 24 Hours: My Active Orders 01/18/20 11:54 Bladder Scan [RC] ASDIRECTED Orthostatic Vital Signs [RC] ASDIRECTED Chest 2V [CR] Stat OCCULT BLOOD SCREEN [OP] Stat 01/18/20 11:56 EKG Documentation Completion [RC] ASDIRECTED EKG 12 Lead [EK] Routine - Assessment/Plan Last 24 Hours: My Active Orders 01/18/20 11:54 Bladder Scan [RC] ASDIRECTED Orthostatic Vital Signs [RC] ASDIRECTED Chest 2V [CR] Stat OCCULT BLOOD SCREEN [OP] Stat 01/18/20 11:56 EKG Documentation Completion [RC] ASDIRECTED EKG 12 Lead [EK] Routine
--- NOTE | 2020-01-19 10:43 | CR ---
INDICATION: Coughing up black phlegm. CHEST, TWO VIEWS: PA and two lateral views of the chest were obtained 01/18/20 and compared with 06/27/16 and 06/04/18. Bipolar pacemaker leads appear unchanged in position. The heart appeared normal in size and shape with evidence of median sternotomy. The aorta is tortuous and calcified in the arch and descending portion. Degenerative changes are noted in the mid to lower thoracic spine with hypertrophic spurring across the vertebral bodies anteriorly. Flattened diaphragm leaves, prominent AP diameter, and hyperaeration suggest COPD. Overlying EKG leads are noted. Pulmonary markings appear similar to the previous examinations without a definite active infiltrate or effusion identified. IMPRESSION: 1. No acute process. 2. ASD aorta. 3. Post median sternotomy with bipolar pacemaker leads. 4. COPD. 5. DJD spine. MTDD
== END 2020-01-18 13:41 | disposition home or self-care (01) ==
LOC: FB.ED 10:50
DX: K92.1 Melena (principal); I48.91 Unspecified atrial fibrillation; I11.0 Hypertensive heart disease with heart failure; I50.9 Heart failure, unspecified; E78.00 Pure hypercholesterolemia, unspecified; F17.210 Nicotine dependence, cigarettes, uncomplicated; K21.9 Gastro-esophageal reflux disease without esophagitis; Z79.82 Long term (current) use of aspirin; Z79.01 Long term (current) use of anticoagulants; Z79.899 Other long term (current) drug therapy
CPT/HCPCS: 36415; 51798; 71046; 80053; 81001; 82270; 84484; 85025; 85610; 93005; 99283; 99284-25

== ENCOUNTER 2020-01-28 07:55 | Day surgery (SDC) | payer MEDICARE, OTHER ==
[2020-01-28] MEDS ORDERED: Propofol 200 MG/20 ML SDV IV ONE (07:56)
[2020-01-28] MEDS ORDERED: ePHEDrine 50 MG/ML SDV IV ONE (07:56)
[2020-01-28] MEDS ORDERED: Lidocaine 2% 5 ML SDV INJECT ONE (07:56)
[2020-01-28] MEDS ORDERED: Sodium Chloride 0.9% 10 ML Syringe FLUSH PRN (08:00)
[2020-01-28] MEDS ORDERED: Lactated Ringers 1,000 ML IV SCH (08:00)
[2020-01-28 10:33] VITALS: PULSE 69
[2020-01-28 10:45] VITALS: BP 129/66
--- NOTE | 2020-01-29 12:28 | OR ---
DATE OF OPERATION: 01/28/2020 SURGEON: Rafael Suarez MD PROCEDURE PERFORMED: Esophagogastroduodenoscopy with cold forceps biopsy. PREOPERATIVE DIAGNOSIS: History of melena and pain in the upper abdomen. POSTOPERATIVE DIAGNOSIS: Duodenal polyp and gastritis. INDICATIONS FOR PROCEDURE: This is an 89-year-old white male with the above- mentioned history. He was offered and accepted an EGD. DESCRIPTION OF OPERATION: After an excellent IV sedation was administered, bite block was inserted. The flexible endoscope was passed without difficulty down the patient's esophagus into the stomach. Stomach was insufflated. Scope was passed through the pylorus and second portion of duodenum and slowly withdrawn. The following findings were noted: Second portion of duodenum, what appeared to be a polypoid lesion. Multiple biopsies were taken and submitted, otherwise unremarkable. Stomach demonstrated some diffuse gastritis and what appeared to be some mucosal changes consistent with inflammation. Biopsies were taken as well, as well as photos. The esophagus was unremarkable. Stomach was deflated. Scope was removed. The patient tolerated the procedure well. Results will be sent by letter. /[id number] /MODL
== END 2020-01-28 11:03 | disposition home or self-care (01) ==
LOC: FB.SDS 07:55
PROVIDERS: ATTEND Surgery
DX: D13.2 Benign neoplasm of duodenum (principal); K29.50 Unspecified chronic gastritis without bleeding; K31.89 Other diseases of stomach and duodenum; I25.10 Atherosclerotic heart disease of native coronary artery without angina pectoris; E78.5 Hyperlipidemia, unspecified; I13.0 Hypertensive heart and chronic kidney disease with heart failure and stage 1 through stage 4 chronic kidney disease, or unspecified chronic kidney disease; I50.22 Chronic systolic (congestive) heart failure; N40.1 Benign prostatic hyperplasia with lower urinary tract symptoms; N18.2 Chronic kidney disease, stage 2 (mild); F17.210 Nicotine dependence, cigarettes, uncomplicated; N13.8 Other obstructive and reflux uropathy; C18.2 Malignant neoplasm of ascending colon; I48.91 Unspecified atrial fibrillation; Z95.1 Presence of aortocoronary bypass graft; Z98.890 Other specified postprocedural states; Z79.899 Other long term (current) drug therapy; Z90.49 Acquired absence of other specified parts of digestive tract; Z79.01 Long term (current) use of anticoagulants
CPT/HCPCS: 00731; 43239; 88305; 88342; J2001; J2704; J7120

== ENCOUNTER 2020-06-14 07:08 | Day surgery (SDC) | payer MEDICARE, OTHER ==
[2020-06-14] MEDS ORDERED: Propofol 200 MG/20 ML SDV IV ONE (07:09)
[2020-06-14] MEDS ORDERED: Lidocaine 2% 5 ML SDV IV ONE (07:09)
[2020-06-14] MEDS ORDERED: Sodium Chloride 0.9% 10 ML Syringe FLUSH PRN (07:15)
[2020-06-14] MEDS ORDERED: Lactated Ringers 1,000 ML IV SCH (07:15)
--- NOTE | 2020-06-14 09:09 | PCM.OPNOTE ---
- General Post-Op/Procedure Note Date of Surgery/Procedure: 06/14/20 Operative Procedure(s): egd with biopsy Findings: 1cm duodenal polyp gastritis Pre Op Diagnosis: hx of duodenal polyp Post-Op Diagnosis: 1cm duodenal polyp. gastritis Anesthesia Technique: MELISA Primary Surgeon: Rafael Suarez Anesthesia Provider: Radha Hester Pathology: 1cm duodenal polyp gastritis Complications: None Condition: Good Free Text/Narrative:: see dictation
[2020-06-14 10:41] VITALS: BP 118/66; PULSE 71
--- NOTE | 2020-06-14 15:10 | OR ---
DATE OF OPERATION: 06/14/2020 SURGEON: Rafael Suarez MD PROCEDURE PERFORMED: Esophagogastroduodenoscopy with cold forceps biopsy. PREOPERATIVE DIAGNOSIS: History of adenomatous polyp of the duodenum. POSTOPERATIVE DIAGNOSIS: Polyp of the duodenum and gastritis. 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 He presents now for followup. DESCRIPTION OF OPERATION: After an excellent IV sedation was administered, the bite block was inserted. The flexible endoscope was passed without difficulty down the patient's esophagus into the stomach. The stomach was insufflated. Scope was advanced through the pylorus to the second portion of the duodenum and slowly withdrawn. In the area of the duodenum, a small adenomatous polyp was again encountered, biopsied multiple times with cold forceps biopsy, and was obliterated. The first portion of the duodenum was unremarkable. The stomach itself demonstrated some diffuse gastritis and biopsies were taken as well. The esophagus was unremarkable. The stomach was deflated, scope was removed. Results will be sent to him via letter. /[id number] /MODL
== END 2020-06-14 10:00 | disposition home or self-care (01) ==
LOC: FB.SDS 07:08
PROVIDERS: ATTEND Surgery
DX: K29.50 Unspecified chronic gastritis without bleeding (principal); D13.2 Benign neoplasm of duodenum; L98.8 Other specified disorders of the skin and subcutaneous tissue; I13.0 Hypertensive heart and chronic kidney disease with heart failure and stage 1 through stage 4 chronic kidney disease, or unspecified chronic kidney disease; I25.10 Atherosclerotic heart disease of native coronary artery without angina pectoris; E78.5 Hyperlipidemia, unspecified; I25.5 Ischemic cardiomyopathy; N18.2 Chronic kidney disease, stage 2 (mild); I50.22 Chronic systolic (congestive) heart failure; I48.91 Unspecified atrial fibrillation; I73.9 Peripheral vascular disease, unspecified; I25.2 Old myocardial infarction; E78.00 Pure hypercholesterolemia, unspecified; Z90.89 Acquired absence of other organs; Z79.899 Other long term (current) drug therapy; Z79.01 Long term (current) use of anticoagulants; Z95.810 Presence of automatic (implantable) cardiac defibrillator; Z98.890 Other specified postprocedural states
CPT/HCPCS: 00731; 43239; 88305; 88342; J2001; J2704; J7120

== ENCOUNTER 2020-08-19 20:04 | Emergency (ER) | payer MEDICARE, OTHER ==
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
[2020-08-19 21:34] VITALS: BP 153/64; PULSE 70
== END 2020-08-19 20:45 | disposition home or self-care (01) ==
LOC: FB.ED 20:04
DX: S01.552A Open bite of oral cavity, initial encounter (principal); I48.91 Unspecified atrial fibrillation; E78.00 Pure hypercholesterolemia, unspecified; I13.0 Hypertensive heart and chronic kidney disease with heart failure and stage 1 through stage 4 chronic kidney disease, or unspecified chronic kidney disease; I50.9 Heart failure, unspecified; K21.9 Gastro-esophageal reflux disease without esophagitis; M10.9 Gout, unspecified; N18.2 Chronic kidney disease, stage 2 (mild); I25.10 Atherosclerotic heart disease of native coronary artery without angina pectoris; Z95.1 Presence of aortocoronary bypass graft; Z88.8 Allergy status to other drugs, medicaments and biological substances; Z79.899 Other long term (current) drug therapy; X58.XXXA Exposure to other specified factors, initial encounter
CPT/HCPCS: 99282; 99283

== ENCOUNTER 2020-08-21 20:46 | Emergency (ER) | payer MEDICARE, OTHER ==
--- NOTE | 2020-08-21 21:07 | EDM.PDOC ---
ED HPI GENERAL MEDICAL PROBLEM - General Chief Complaint: Cardiovascular Problem Stated Complaint: elevated BP Time Seen by Provider: 08/21/20 20:50 Source of Information: Reports: Patient, Family History Limitations: Reports: No Limitations - History of Present Illness INITIAL COMMENTS - FREE TEXT/NARRATIVE: Noted by to have persistently elevated BP today . also was olivia. Pt states he has no pain and feels bloated and gassy Burping a lot and also passing a lot of gas no diarrhea, mild constipation no sob , no cough no fever or chills noted Onset: Today Onset Date: 08/21/20 Duration: Getting Worse Location: Reports: Chest Quality: Reports: Dull Severity: Mild Improves with: Reports: None Worsens with: Reports: None Context: Reports: Activity Associated Symptoms: Reports: Loss of Appetite, Malaise - Related Data Allergies Allergy/AdvReac Type Severity Reaction Status Date / Time risedronate sodium Allergy Joint Pain Verified 08/21/20 21:22 [From Actonel] Home Meds: Home Meds Amiodarone [Cordarone] 200 mg PO DAILY 06/10/20 [History] Finasteride [Proscar] 5 mg PO DAILY 06/10/20 [History] Furosemide [Lasix] 80 mg PO BID 06/10/20 [History] Meclizine [Antivert] 12.5 mg PO DAILY 06/10/20 [History] Pravastatin Sodium 10 mg PO DAILY 06/10/20 [History] Spironolactone [Aldactone] 25 mg PO DAILY 06/10/20 [History] Tamsulosin [Flomax] 0.4 mg PO DAILY 06/10/20 [History] Vitamin E Mixed [Vitamin E] 1 tab PO Q48H 06/10/20 [History] Warfarin Sodium [Jantoven] 2.5 mg PO MOWEFR 06/10/20 [History] allopurinoL [Zyloprim] 200 mg PO DAILY 06/10/20 [History] carvediloL [Coreg] 12.5 mg PO BID 06/10/20 [History] metOLazone [Metolazone] 2.5 mg PO MOWEFR 06/10/20 [History] Potassium Chloride [Klor-Con M20] 20 meq PO QID 08/19/20 [History] Warfarin [Coumadin] 5 mg PO SUTUTHSA 08/19/20 [History] Omeprazole 20 mg PO ACBREAKFAST #30 cap.sr 08/21/20 [Rx] Past Medical History HEENT History: Reports: Cataract, Hard of Hearing, Impaired Vision, Other (See Below) Other HEENT History: History of Meniere's Disease. Cardiovascular History: Reports: Afib, Automatic Implantable Cardioverter Defibrillators, Bypass, CAD, Cardiomyopathy, Heart Failure, Heart Valve Replacement, High Cholesterol, Hypertension, Pacemaker, Prior Cardiac Arrest, PVD Other Cardiovascular History: States he has had three heart attacks. Respiratory History: Reports: Pneumonia, Recurrent Gastrointestinal History: Reports: Diverticulosis, GERD, Other (See Below) Other Gastrointestinal History: Past stomach ulcer. Genitourinary History: Reports: Prostate Disorder, Renal Disease, Retention, Urinary Other Genitourinary History: Enlarged prostate with urinary obstruction. Elevated PSA. Chronic Stage II Kidney Disease. 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 Chondrocalcinosis. Neurological History: Reports: Vertigo Other Neuro History: Meniere's Syndrome. Psychiatric History: Reports: Anxiety Endocrine/Metabolic History: Reports: None Hematologic History: Reports: Anticoagulation Therapy Immunologic History: Reports: None Oncologic (Cancer) History: Reports: Colon Dermatologic History: Reports: Other (See Below) Other Dermatologic History: Skin ulcer of toe right foot. - Infectious Disease History Infectious Disease History: Reports: Chicken Pox, Measles, Mumps Social & Family History - Family History Family Medical History: No Pertinent Family History - Caffeine Use Caffeine Use: Reports: Coffee - Living Situation & Occupation Living situation: Reports: Occupation: Retired ED ROS GENERAL - Review of Systems Review Of Systems: See Below Constitutional: Reports: Malaise, Weakness, Fatigue HEENT: Reports: No Symptoms Respiratory: Reports: No Symptoms. Denies: Shortness of Breath, Wheezing, Pleuritic Chest Pain, Cough Cardiovascular: Reports: No Symptoms, Blood Pressure Problem, Dyspnea on Exertion, Edema Endocrine: Reports: Fatigue GI/Abdominal: Reports: No Symptoms : Reports: No Symptoms Musculoskeletal: Reports: No Symptoms Skin: Reports: No Symptoms Neurological: Reports: No Symptoms Psychiatric: Reports: No Symptoms Hematologic/Lymphatic: Reports: No Symptoms ED EXAM, GENERAL - Physical Exam Exam: See Below Exam Limited By: No Limitations General Appearance: Alert, WD/WN, No Apparent Distress Eye Exam: Bilateral Eye: EOMI Ears: Normal External Exam Ear Exam: Bilateral Ear: Auricle Normal, Canal Normal Nose: Normal Inspection Throat/Mouth: Normal Oropharynx Head: Normocephalic Neck: Supple, Non-Tender Respiratory/Chest: No Respiratory Distress, Lungs Clear, No Accessory Muscle Use Cardiovascular: Other (trace pedal edema) GI/Abdominal: Soft, Non-Tender Back Exam: Normal Inspection, Full Range of Motion Extremities: Normal Inspection Neurological: Alert, Oriented, CN II-XII Intact Psychiatric: Normal Affect, Normal Mood Skin Exam: Warm, Dry, Intact Course - Vital Signs Last Recorded V/S: Last Vital Signs Temp 36.6 C 08/21/20 23:05 Pulse 70 08/21/20 23:05 Resp 20 08/21/20 23:05 BP 165/73 H 08/21/20 23:05 Pulse Ox 97 08/21/20 23:05 - Orders/Labs/Meds Orders: Active Orders 24 hr Category Date Time Status EKG 12 Lead [EK] Routine Ther 08/21/20 22:39 Ordered Labs: Laboratory Tests 08/21/20 08/21/20 08/21/20 Range/Units 21:16 21:25 21:25 WBC 13.8 H (3.2-10.1) x10-3/uL RBC 4.47 (3.90-5.90) x10(6)uL Hgb 15.5 (12.9-17.7) g/dL Hct 46.1 (38.3-50.1) % MCV 103.1 H (80.8-98.7) fL MCH 34.6 H (27.0-33.3) pg MCHC 33.6 (28.7-35.3) g/dL RDW 15.1 H (12.4-15.0) % Plt Count 174 (117-477) x10(3)uL MPV 9.7 (6.7-11.0) fL Neut % (Auto) 71.6 (40.3-71.8) % Lymph % (Auto) 13.4 L (15.8-45.3) % Garrard % (Auto) 13.3 (5.5-15.2) % Eos % (Auto) 1.3 (0.1-6.8) % Baso % (Auto) 0.4 (0.3-3.8) % Neut # (Auto) 9.9 H (1.7-6.9) x10-3/uL Lymph # (Auto) 1.9 (0.5-4.5) x10-3/uL Garrard # (Auto) 1.8 H (0.0-1.2) x10-3/uL Eos # (Auto) 0.2 (0.0-0.6) x10-3/uL Baso # (Auto) 0.1 (0.0-0.3) x10-3/uL PT (9.0-11.1) sec INR (1.00-1.24) Sodium 136 (135-145) mmol/L Potassium 3.9 (3.5-5.3) mmol/L Chloride 98 L (100-110) mmol/L Carbon Dioxide 32 (21-32) mmol/L BUN 46 H D (7-18) mg/dL Creatinine 1.9 H (0.70-1.30) mg/dL Est Cr Clr Drug Dosing 26.35 mL/min Estimated GFR (MDRD) 34 L (>60) BUN/Creatinine Ratio 24.2 H (9-20) Glucose 202 H (80-116) mg/dL Calcium 9.0 (8.6-10.2) mg/dL Total Bilirubin 0.6 (0.1-1.3) mg/dL AST 23 D (5-25) IU/L ALT 25 (12-36) U/L Alkaline Phosphatase 62 (56-112) IU/L Troponin I (4.0-60.3) pg/mL NT-Pro-B Natriuret Pep (<=450) pg/mL Total Protein 7.1 (6.0-8.0) g/dL Albumin 3.2 (3.2-4.6) g/dL Globulin 3.9 g/dL Albumin/Globulin Ratio 0.8 Urine Color Yellow (YELLOW) Urine Appearance Clear (CLEAR) Urine pH 6.0 (5.0-6.5) Ur Specific [place] 1.005 L (1.010-1.025) Urine Protein Negative (NEGATIVE) mg/dL Urine Glucose (UA) Normal (NORMAL) mg/dL Urine Ketones Negative (NEGATIVE) mg/dL Urine Occult Blood Negative (NEGATIVE) Urine Nitrite Negative (NEGATIVE) Urine Bilirubin Negative (NEGATIVE) Urine Urobilinogen Normal (NEGATIVE) mg/dL Ur Leukocyte Esterase Negative (NEGATIVE) Urine RBC Not seen (0-5) Urine WBC 0-5 (0-5) Ur Squamous Epith Cells Rare (NS,R,O) Urine Bacteria Rare H (NS) 08/21/20 08/21/20 Range/Units 21:25 21:25 WBC (3.2-10.1) x10-3/uL RBC (3.90-5.90) x10(6)uL Hgb (12.9-17.7) g/dL Hct (38.3-50.1) % MCV (80.8-98.7) fL MCH (27.0-33.3) pg MCHC (28.7-35.3) g/dL RDW (12.4-15.0) % Plt Count (117-477) x10(3)uL MPV (6.7-11.0) fL Neut % (Auto) (40.3-71.8) % Lymph % (Auto) (15.8-45.3) % Garrard % (Auto) (5.5-15.2) % Eos % (Auto) (0.1-6.8) % Baso % (Auto) (0.3-3.8) % Neut # (Auto) (1.7-6.9) x10-3/uL Lymph # (Auto) (0.5-4.5) x10-3/uL [place] # (Auto) (0.0-1.2) x10-3/uL Eos # (Auto) (0.0-0.6) x10-3/uL Baso # (Auto) (0.0-0.3) x10-3/uL PT 15.4 H (9.0-11.1) sec INR 1.47 H (1.00-1.24) Sodium (135-145) mmol/L Potassium (3.5-5.3) mmol/L Chloride (100-110) mmol/L Carbon Dioxide (21-32) mmol/L BUN (7-18) mg/dL Creatinine (0.70-1.30) mg/dL Est Cr Clr Drug Dosing mL/min Estimated GFR (MDRD) (>60) BUN/Creatinine Ratio (9-20) Glucose (80-116) mg/dL Calcium (8.6-10.2) mg/dL Total Bilirubin (0.1-1.3) mg/dL AST (5-25) IU/L ALT (12-36) U/L Alkaline Phosphatase (56-112) IU/L Troponin I 19.2 (4.0-60.3) pg/mL NT-Pro-B Natriuret Pep 781 H (<=450) pg/mL Total Protein (6.0-8.0) g/dL Albumin (3.2-4.6) g/dL Globulin g/dL Albumin/Globulin Ratio Urine Color (YELLOW) Urine Appearance (CLEAR) Urine pH (5.0-6.5) Ur Specific [place] (1.010-1.025) Urine Protein (NEGATIVE) mg/dL Urine Glucose (UA) (NORMAL) mg/dL Urine Ketones (NEGATIVE) mg/dL Urine Occult Blood (NEGATIVE) Urine Nitrite (NEGATIVE) Urine Bilirubin (NEGATIVE) Urine Urobilinogen (NEGATIVE) mg/dL Ur Leukocyte Esterase (NEGATIVE) Urine RBC (0-5) Urine WBC (0-5) Ur Squamous Epith Cells (NS,R,O) Urine Bacteria (NS) Meds: Medications Discontinued Medications Generic Name Dose Route Start Last Admin Trade Name Freq PRN Reason Stop Dose Admin Al Hydroxide/Mg Hydroxide 15 0 ml 08/21/20 20:54 08/21/20 21:25 ml/ Lidocaine HCl 15 ml PO 08/21/20 20:55 30 ml ONETIME ONE Administration Pantoprazole Sodium 40 mg 08/22/20 06:00 Protonix PO 0600 HAZEL Pantoprazole Sodium 40 mg 08/22/20 22:14 Protonix PO 08/22/20 22:15 ONETIME ONE Pantoprazole Sodium 40 mg 08/21/20 22:18 08/21/20 22:35 Pantoprazole PO 08/21/20 22:19 Not Given ONETIME ONE Pantoprazole Sodium 40 mg 08/21/20 22:28 08/21/20 22:28 Protonix PO 08/21/20 22:29 40 mg ONETIME ONE Administration Pantoprazole Sodium Confirm 08/21/20 22:25 08/21/20 22:35 Protonix Administered 08/21/20 22:26 Not Given Dose 40 mg .ROUTE .STK-MED ONE Spironolactone 25 mg 08/21/20 21:13 08/21/20 21:28 Aldactone PO 08/21/20 21:14 25 mg ONETIME ONE Administration - Re-Assessments/Exams Free Text/Narrative Re-Assessment/Exam: 08/21/20 22:36 BP gradually decreased with observation with given dose of spironolactone pt still complained of upset stomach so was given GI cocktail and a dose of protonix , seemed to help epigastric fullness resolved labs were slightly off troponin negative BNP mildly elevated Will be discharge to follow up with PCP 08/22/20 15:59 08/22/20 16:01 Departure - Departure Time of Disposition: 23:10 Disposition: Home, Self-Care 01 Condition: Fair Clinical Impression: Hypertensive heart disease, Gastroesophageal reflux disease Prescriptions: Omeprazole 20 mg PO ACBREAKFAST #30 cap.sr Instructions: Indigestion, [id number], Gastroesophageal Reflux Disease, Adult, [id number] Referrals: Jai Ruth MD [Primary Care Provider] - Forms: ED Department Discharge Additional Instructions: Make appointment to FU with PCP - My Orders Last 24 Hours: My Active Orders 08/21/20 22:39 EKG 12 Lead [EK] Routine - Assessment/Plan Last 24 Hours: My Active Orders 08/21/20 22:39 EKG 12 Lead [EK] Routine
[2020-08-21] MEDS: Alum Hydroxide/Mag Hydroxide 15 ML, Lidocaine 2% 15 ML PO ONE ×2 (21:25)
[2020-08-21] MEDS: Spironolactone 25 MG Tab PO ONE (21:28)
[2020-08-21 21:36] VITALS: PULSE 70
[2020-08-21] MEDS: Pantoprazole 40 MG Tab.CR PO ONE (22:28)
[2020-08-21] MEDS: Pantoprazole 40 MG Tab.CR ONE (22:35)
[2020-08-21] MEDS: Pantoprazole 20 MG Tab, Delayed Release PO ONE (22:35)
[2020-08-21 23:57] VITALS: BP 165/73
[2020-08-22] MEDS ORDERED: Pantoprazole 40 MG Tab.CR PO SCH (06:00)
[2020-08-22] MEDS ORDERED: Pantoprazole 40 MG Tab.CR PO ONE (22:14)
== END 2020-08-21 23:10 | disposition home or self-care (01) ==
LOC: FB.ED 20:46
DX: K21.9 Gastro-esophageal reflux disease without esophagitis (principal); I11.0 Hypertensive heart disease with heart failure; I50.9 Heart failure, unspecified; I48.91 Unspecified atrial fibrillation; E78.00 Pure hypercholesterolemia, unspecified; M10.9 Gout, unspecified; Z88.8 Allergy status to other drugs, medicaments and biological substances; Z79.899 Other long term (current) drug therapy
CPT/HCPCS: 36415; 80053; 81001; 83880; 84484; 85025; 85610; 93005; 99283; 99284-25; A9270-GY

== ENCOUNTER 2021-03-12 19:15 | Emergency (ER) | payer MEDICARE, OTHER ==
[2021-03-12 19:38] VITALS: PULSE 72
--- NOTE | 2021-03-12 19:49 | EDM.PDOC ---
ED HPI GENERAL MEDICAL PROBLEM - General Chief Complaint: Upper Extremity Injury/Pain Stated Complaint: SHOULDER AND LT ARM PAIN,BP HIGH Time Seen by Provider: 03/12/21 19:44 Source of Information: Reports: Patient, Family History Limitations: Reports: No Limitations - History of Present Illness INITIAL COMMENTS - FREE TEXT/NARRATIVE: Patient has chronic left shoulder pain x 2 years but today the pain is worse. Denies injury. Pain is not exacerbated with movement. No improvement with Tylenol Arthritis and Aspircream. Denies chest pain or SOB. He is right hand dominant. PMHx includes HI, HTN, CKD, Afib, and AICD. Onset: Today Location: Reports: Upper Extremity, Left Severity: Moderate Left Posterior Shoulder Pain Score (Numeric/FACES): 7 - Related Data Allergies Allergy/AdvReac Type Severity Reaction Status Date / Time risedronate sodium Allergy Joint Pain Verified 08/21/20 21:22 [From Actonel] Home Meds: Home Meds Amiodarone [Cordarone] 200 mg PO DAILY 06/10/20 [History] Finasteride [Proscar] 5 mg PO DAILY 06/10/20 [History] Furosemide [Lasix] 80 mg PO QPM 06/10/20 [History] Meclizine [Antivert] 12.5 mg PO DAILY 06/10/20 [History] Spironolactone [Aldactone] 25 mg PO DAILY 06/10/20 [History] Tamsulosin [Flomax] 0.8 mg PO DAILY 06/10/20 [History] Warfarin Sodium [Jantoven] 2.5 mg PO MOWEFR 06/10/20 [History] allopurinoL [Zyloprim] 200 mg PO DAILY 06/10/20 [History] carvediloL [Coreg] 12.5 mg PO BID 06/10/20 [History] Potassium Chloride [Klor-Con M20] 40 meq PO TID 08/19/20 [History] Warfarin [Coumadin] 5 mg PO SUTUTHSA 08/19/20 [History] Clotrimazole [Clotrimazole 1%] 1 applic TOP BID 03/12/21 [History] Dutasteride 0.5 mg PO DAILY 03/12/21 [History] Famotidine 40 mg PO DAILY 03/12/21 [History] Furosemide 40 mg PO QAM 03/12/21 [History] Isosorbide Mononitrate [Isosorbide Mononitrate ER] 30 mg PO DAILY 03/12/21 [History] Melatonin 5 mg PO BEDTIME 03/12/21 [History] Nitroglycerin 0.4 mg PO DAILY PRN 03/12/21 [History] Past Medical History HEENT History: Reports: Cataract, Hard of Hearing, Impaired Vision, Other (See Below) Other HEENT History: History of Meniere's Disease. Cardiovascular History: Reports: Afib, Automatic Implantable Cardioverter Defibrillators, Bypass, CAD, Cardiomyopathy, Heart Failure, Heart Valve Replacement, High Cholesterol, Hypertension, HI (x3), Pacemaker, Prior Cardiac Arrest, PVD Respiratory History: Reports: Pneumonia, Recurrent Gastrointestinal History: Reports: Diverticulosis, GERD, Other (See Below) Other Gastrointestinal History: Past stomach ulcer. Genitourinary History: Reports: Prostate Disorder, Renal Disease, Retention, Uri nary Other Genitourinary History: Enlarged prostate with urinary obstruction. Elevated PSA. Chronic Stage II Kidney Disease. 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 Chondrocalcinosis. Neurological History: Reports: Vertigo Other Neuro History: Meniere's Syndrome. Psychiatric History: Reports: Anxiety Endocrine/Metabolic History: Reports: None Hematologic History: Reports: Anticoagulation Therapy Immunologic History: Reports: None Oncologic (Cancer) History: Reports: Colon Dermatologic History: Reports: Other (See Below) Other Dermatologic History: Skin ulcer of toe right foot. - Infectious Disease History Infectious Disease History: Reports: Chicken Pox, Measles, Mumps - Past Surgical History HEENT Surgical History: Reports: Cataract Surgery, Eye Surgery Cardiovascular Surgical History: Reports: AICD, Coronary Artery Bypass, Pacer, Valve Replacement Other Cardiovascular Surgeries/Procedures: Cardioversion. Cardiac surgery. Pacemaker. GI Surgical History: Reports: Appendectomy, Colon, Colonoscopy, EGD, Polypectomy Other GI Surgeries/Procedures: History colon resection. Male Surgical History: Reports: TURP-Transurethral Resection of Prostate, Vasectomy Musculoskeletal Surgical History: Reports: Joint Replacement, Knee Replacement Social & Family History - Family History Family Medical History: No Pertinent Family History - Tobacco Use Tobacco Use Status *Q: Current Every Day Tobacco User Tobacco Use Within Last Twelve Months: Cigars - Caffeine Use Caffeine Use: Reports: Coffee - Recreational Drug Use Recreational Drug Use: No - Living Situation & Occupation Living situation: Reports: Occupation: Retired Review of Systems - Review of Systems Review Of Systems: Comprehensive ROS is negative, except as noted in HPI. ED EXAM, GENERAL - Physical Exam Exam: See Below Exam Limited By: No Limitations General Appearance: Alert, WD/WN, No Apparent Distress Throat/Mouth: Normal Voice, No Airway Compromise Head: Atraumatic, Normocephalic Neck: Full Range of Motion Respiratory/Chest: No Respiratory Distress, Lungs Clear, Normal Breath Sounds Cardiovascular: Regular Rate, Rhythm, No Murmur Peripheral Pulses: 3+: Radial (L) Extremities: Other (tenderness to left posterior shoulder) Neurological: Alert, Oriented, Normal Cognition Skin Exam: Warm, Dry, Intact #1 Interpretation EKG Date: 03/12/21 Time: 19:55 Rhythm: Other (Ventricular paced rhythm) Rate (Beats/Min): 71 Course - Vital Signs Last Recorded V/S: Last Vital Signs Temp 36.3 C 03/12/21 19:32 Pulse 72 03/12/21 19:32 Resp 18 03/12/21 19:32 BP 185/86 H 03/12/21 19:32 Pulse Ox 96 03/12/21 19:32 - Orders/Labs/Meds Orders: Active Orders 24 hr Category Date Time Status EKG Documentation Completion [RC] ASDIRECTED Care 03/12/21 19:43 Active EKG 12 Lead [EK] Stat Ther 03/12/21 19:43 Ordered Labs: Laboratory Tests 03/12/21 03/12/21 03/12/21 Range/Units 19:50 19:50 19:50 WBC 9.9 (3.2-10.1) x10-3/uL RBC 4.40 (3.90-5.90) x10(6)uL Hgb 15.4 (12.9-17.7) g/dL Hct 46.4 (38.3-50.1) % MCV 105.4 H (80.8-98.7) fL MCH 34.9 H (27.0-33.3) pg MCHC 33.1 (28.7-35.3) g/dL RDW 15.4 H (12.4-15.0) % Plt Count 176 (117-477) x10(3)uL MPV 10.1 (6.7-11.0) fL Neut % (Auto) 70.0 (40.3-71.8) % Lymph % (Auto) 14.0 L (15.8-45.3) % [place] % (Auto) 13.9 (5.5-15.2) % Eos % (Auto) 1.2 (0.1-6.8) % Baso % (Auto) 0.9 (0.3-3.8) % Neut # (Auto) 6.9 (1.7-6.9) x10-3/uL Lymph # (Auto) 1.4 (0.5-4.5) x10-3/uL [place] # (Auto) 1.4 H (0.0-1.2) x10-3/uL Eos # (Auto) 0.1 (0.0-0.6) x10-3/uL Baso # (Auto) 0.1 (0.0-0.3) x10-3/uL PT 21.7 H (9.0-11.1) sec INR 2.11 H (1.00-1.24) Sodium (135-145) mmol/L Potassium (3.5-5.3) mmol/L Chloride (100-110) mmol/L Carbon Dioxide (21-32) mmol/L BUN (7-18) mg/dL Creatinine (0.70-1.30) mg/dL Est Cr Clr Drug Dosing Estimated GFR (MDRD) (>60) BUN/Creatinine Ratio (9-20) Glucose (80-116) mg/dL Calcium (8.6-10.2) mg/dL Troponin I 12.6 (4.0-60.3) pg/mL 03/12/21 Range/Units 19:50 WBC (3.2-10.1) x10-3/uL RBC (3.90-5.90) x10(6)uL Hgb (12.9-17.7) g/dL Hct (38.3-50.1) % MCV (80.8-98.7) fL MCH (27.0-33.3) pg MCHC (28.7-35.3) g/dL RDW (12.4-15.0) % Plt Count (117-477) x10(3)uL MPV (6.7-11.0) fL Neut % (Auto) (40.3-71.8) % Lymph % (Auto) (15.8-45.3) % [place] % (Auto) (5.5-15.2) % Eos % (Auto) (0.1-6.8) % Baso % (Auto) (0.3-3.8) % Neut # (Auto) (1.7-6.9) x10-3/uL Lymph # (Auto) (0.5-4.5) x10-3/uL [place] # (Auto) (0.0-1.2) x10-3/uL Eos # (Auto) (0.0-0.6) x10-3/uL Baso # (Auto) (0.0-0.3) x10-3/uL PT (9.0-11.1) sec INR (1.00-1.24) Sodium 142 (135-145) mmol/L Potassium 4.4 (3.5-5.3) mmol/L Chloride 103 D (100-110) mmol/L Carbon Dioxide 31 (21-32) mmol/L BUN 39 H (7-18) mg/dL Creatinine 2.0 H* (0.70-1.30) mg/dL Est Cr Clr Drug Dosing TNP Estimated GFR (MDRD) 32 L (>60) BUN/Creatinine Ratio 19.5 (9-20) Glucose 184 H (80-116) mg/dL Calcium 8.5 L (8.6-10.2) mg/dL Troponin I (4.0-60.3) pg/mL - Re-Assessments/Exams Free Text/Narrative Re-Assessment/Exam: 03/12/21 20:21 Pain resolved spontaneously Departure - Departure Time of Disposition: 20:21 Disposition: Home, Self-Care 01 Condition: Good Clinical Impression: Shoulder pain, left Qualifiers: Chronicity: acute Qualified Code(s): M25.512 - Pain in left shoulder - Discharge Information *PRESCRIPTION DRUG MONITORING PROGRAM REVIEWED*: No *COPY OF PRESCRIPTION DRUG MONITORING REPORT IN PATIENT PER: Not Applicable Instructions: Shoulder Pain Referrals: Jai Ruth MD [Primary Care Provider] - 2 Days Forms: ED Department Discharge Additional Instructions: Rest, take Tylenol Arthritis as needed. Use a heating pad. Follow up with your primary physician in 2-3 days. Return to the ER as needed. Sepsis Event Note (ED) - Evaluation Sepsis Screening Result: No Definite Risk - Focused Exam Vital Signs: Vital Signs Temp Pulse Resp BP Pulse Ox 03/12/21 19:32 36.3 C 72 18 185/86 H 96 - My Orders Last 24 Hours: My Active Orders 03/12/21 19:43 EKG Documentation Completion [RC] ASDIRECTED EKG 12 Lead [EK] Stat - Assessment/Plan Last 24 Hours: My Active Orders 03/12/21 19:43 EKG Documentation Completion [RC] ASDIRECTED EKG 12 Lead [EK] Stat
[2021-03-12 20:31] VITALS: BP 149/67
== END 2021-03-12 20:30 | disposition home or self-care (01) ==
LOC: FB.ED 19:15
DX: M25.512 Pain in left shoulder (principal); I48.91 Unspecified atrial fibrillation; I13.0 Hypertensive heart and chronic kidney disease with heart failure and stage 1 through stage 4 chronic kidney disease, or unspecified chronic kidney disease; N18.9 Chronic kidney disease, unspecified; I50.9 Heart failure, unspecified; I25.10 Atherosclerotic heart disease of native coronary artery without angina pectoris; I25.2 Old myocardial infarction; M10.9 Gout, unspecified; Z72.0 Tobacco use; Z88.8 Allergy status to other drugs, medicaments and biological substances; Z79.01 Long term (current) use of anticoagulants; Z79.899 Other long term (current) drug therapy
CPT/HCPCS: 36415; 80048; 84484; 85025; 85610; 93005; 93010; 99282; 99283